=== PATIENT | male | born 2000 | race Two or more races ===

== ENCOUNTER 2024-07-25 19:37 | Emergency (ER) | payer MEDICAID ==
[~2024-07-25] VITALS: Ht 172.7 cm; Wt 87.5 kg
--- NOTE | 2024-07-25 20:40 | Physician Documentation ---
History of Present Illness ~ Chief Complaint: Shortness of Breath Stated Complaint: COUGHING Time Seen by MD: 20:26 OK to notify your PCP?: Yes Source: patient, RN/MD, lead data architect, RN notes reviewed, old records Mode of Arrival: POV Exam Limitations: no limitations HPI 23-year-old Upper Sor[place]-speaking male presents complaining of three days of sore throat, difficulty breathing, and nasal congestion. He reports his throat feels inflamed and might be closing off due to swelling. He also has a frontal headache that began today. He denies history of asthma. He denies any treatment prior to arrival such as seasonal allergy medications. 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 Medication Reconciliation Allergies: Uncoded Allergies: NKDA (Allergy, Unknown, 07/25/24) Past Medical History Past Medical History: No Pertinent History Past Surgical History: abdominal surgery Smoking Status: Never smoker Alcohol Use: Rarely Drug Use: none Occupation: employed Review of Systems All Other Systems at this time: Reviewed and Negative ROS As stated above in the HPI, otherwise all systems are reviewed and negative. Physical Exam Vital Signs: RN Vital Signs have been reviewed: Yes, Temperature: 98.2, Source: Temporal, Heart Rate: 75, Respiratory Rate: 18, BP: 143/89, Pulse Oximetry: 96, Weight: 87.500 Pulse Oximetry Reflects: adequate oxygenation Physical Exam General: The patient is well developed, well nourished, nontoxic appearing and is in no acute distress. Skin: [place], warm and dry with no rashes. HEENT: Enlarged kissing tonsils, no exudates, posterior oropharyngeal erythema. Rhinorrhea. Mild periorbital swelling bilaterally. Head was normocephalic and atraumatic. Chest: Short shallow breath sounds, poor inspiratory effort. Clear to auscultation bilaterally without wheezes, rales or rhonchi. No accessory muscle use. No dullness to percussion. Heart: Rate regular and rhythmic. S1, S2. No murmurs. Palpation of the chest wall was normal. No rubs or thrills. Abdomen: Soft, nontender and nondistended. Positive bowel sounds. No guarding or rebound. Extremities: No cyanosis, clubbing or edema. The patient moves all extremities. Pulses were equal and symmetric. Neurologic: Motor and sensation grossly intact. Cranial nerves II-XII grossly intact. A & O x4. Psychologic: Normal mood and affect. No agitation. Progress Results/Orders Results/Orders Medications Received in ER Medications (Trade) Dose Ordered Sig/Renetta Route PRN Reason Start Time Stop Time Status Last Admin Dose Admin (Kenalog-40 inj) 40 mg ONCE ONCE IM 07/25/24 20:45 07/25/24 20:51 DC 07/25/24 21:11 40 MG (Xylocaine 2% Viscous 15mL cup) 15 ml ONCE ONCE MM 07/25/24 20:45 07/25/24 20:51 DC 07/25/24 21:07 15 ML (Hydramine oral solution) 25 mg ONCE ONCE PO 07/25/24 20:45 07/25/24 20:52 DC 07/25/24 21:18 25 MG (Tessalon Perles capsule) 200 mg ONCE ONCE PO 07/25/24 20:45 07/25/24 20:51 DC 07/25/24 21:10 200 MG (Benadryl capsule) 25 mg ONCE ONCE PO 07/25/24 20:55 07/25/24 20:56 DC 07/25/24 21:09 25 MG (ipratrop/ albuterol 0.5-3(2.5) MG/3ml nebule) 3 ml ONCE ONCE NEB 07/25/24 20:55 07/25/24 20:56 DC 07/25/24 20:58 3 ML (Tylenol tablet) 650 mg ONCE ONCE PO 07/25/24 21:00 07/25/24 21:01 DC 07/25/24 21:09 650 MG (Naprosyn tablet) 500 mg ONCE ONCE PO 07/25/24 21:00 07/25/24 21:01 DC 07/25/24 21:10 500 MG Vital Signs 07/25/24 07/25/24 07/25/24 07/25/24 19:39 20:14 20:28 20:58 Temp 98.2 Pulse 83 75 69 Resp 24 16 18 15 B/P (MAP) 154/75 143/89 (107) Pulse Ox 98 96 95 O2 Delivery Room Air* O2 Flow Rate 0 FiO2 21 07/25/24 07/25/24 21:05 22:27 Temp 98.0 Pulse 77 74 Resp 16 16 B/P (MAP) 108/66 (80) Pulse Ox 97 98 O2 Delivery Room Air* O2 Flow Rate 0 0 FiO2 21 21 Laboratory Tests Test 07/25/24 21:35 SARS-CoV-2 Antigen (Rapid) Negative Medical Decision Making Additional info obtained from: old records Differential Dx:Considerations: Include: sinusitis, upper resp. infection, other Departure Time of Disposition: 23:34 Disposition: 01 HOME / SELF CARE / HOMELESS Impression: Primary Impression: URI (upper respiratory infection) Qualified Codes: J06.9 - Acute upper respiratory infection, unspecified Additional Impressions: Seasonal allergies Pharyngitis Qualified Codes: J02.9 - Acute pharyngitis, unspecified Condition: Stable Discharge Instructions: Pharyngitis, Dlzz-[id number]-Ccop, Upper Respiratory Infection, Adult, [id number] Additional Instructions: Take over the counter benadryl (diphenhydramine), Claratin (loratadine), and Zyrtec (Cetirizine). May also use Flucasone nasal spray. Take acetaminophen and Motrin for headaches. Consider wearing a mask while working. Return to the ER for worsening shortness of breath, fever, chest pain, or other concerns. [place] benadryl (diphenhydramine), Claratin (loratadine), and Zyrtec (Cetirizine) sin receta. [place] puede usar Flucasone en aerosol nasal. [place] acetaminofn y Motrin para el dolor de sahra. Considere usar mascarilla mientras trabaja. Regrese a urgencias si la dificultad para respirar, la fiebre, el dolor de pecho u otras inquietudes empeoran. Education Educated: Patient Educated regarding: diagnosis, treatment, need for follow up Signature Scribe Signature: Scribed for Clinton Grant MD by Jered Yu . 07/25/24 20:55 Attestation: The note accurately reflects work and decisions made by me.Clinton Grant MD 07/25/24 20:39 CLINTON GRANT MD July 25, 2024 20:40 JERED CABA July 25, 2024 21:00
[2024-07-25 20:58] VITALS: PULSE 69; RESP 15; O2SAT 95
[2024-07-25] MEDS: ipratropium/albuterol 3ml nebule NEB ONE (20:58)
[2024-07-25 21:05] VITALS: PULSE 77; RESP 16; O2SAT 97
[2024-07-25] MEDS: LIDOcaine 2% Viscous 15ml cup MM ONE (21:07)
[2024-07-25] MEDS: diphenhydrAMINE 25mg capsule PO ONE (21:09)
[2024-07-25] MEDS: acetaminophen 325mg tablet PO ONE (21:09)
[2024-07-25] MEDS: benzonatate 100mg capsule PO ONE (21:10)
[2024-07-25] MEDS: naproxen 500mg tablet PO ONE (21:10)
[2024-07-25] MEDS: triamcinolone acetonide 40mg/ml inj IM ONE (21:11)
[2024-07-25] MEDS: diphenhydrAMINE 25 MG/10 ML UD oral solution PO ONE (21:18)
[2024-07-25 23:40] VITALS: BP 100/47; PULSE 70; RESP 18; TEMP 98.2; O2SAT 98
== END 2024-07-25 23:44 | disposition home or self-care (01) ==
LOC: ER 19:39
DX: J06.9 Acute upper respiratory infection, unspecified (principal); Z20.822 Contact with and (suspected) exposure to COVID-19
CPT/HCPCS: 36415; 87811; 94640; 96372; 99284; J3301; Q0163; 94760

== ENCOUNTER 2024-09-29 20:14 | Emergency (ER) | payer MEDICAID ==
[~2024-09-29] VITALS: Ht 182.9 cm; Wt 90.2 kg
[2024-09-29 20:16] VITALS: O2SAT 98
--- NOTE | 2024-09-29 20:27 | ELECTROCARDIOGRAPH REPORT ---
[facility] Test Date: 2024-09-29 Test Time: 20:26:04 Pat Name: JOSESITO GROSS Department: [facility]- Patient ID: [facility]-[id number] Room: Gender: M Medical Receptionist Assistant: : 2000 Requested By: TOMMY SAMAYOA Order Number: [id number] Reading MD: Measurements Intervals [place] Rate: 70 P: -13 WI: 178 QRS: 36 QRSD: 87 T: 35 QT: 340 QTc: 367 Interpretive Statements Sinus rhythm ST elev, probable normal early repol pattern Please click the below link to view image of tracing.
[2024-09-29 21:05] LABS: MEAN PLATELET VOLUME 8.1 FL (7.4-10.4); RED CELL DISTRIBUTION WIDTH 15.7 % (11.5-14.5)
--- NOTE | 2024-09-29 21:08 | RADIOLOGY REPORT ---
CHEST RADIOGRAPH Indication: CP Technique: Single frontal view of the chest was obtained COMPARISON: None FINDINGS: Lines and Tubes: None Lungs: Clear Pleura: No effusion. No pneumothorax. Cardiomediastinal contours: Unremarkable Bones: Unremarkable IMPRESSION: 1. No acute disease.
[2024-09-29 21:19] VITALS: BP 131/72; PULSE 68; TEMP 98.6
[2024-09-29 21:28] LABS: CREATININE 0.87 MG/DL (0.60-1.10); TOTAL CARBON DIOXIDE 27.6 MMOL/L (24-32); eCRCL 147 ML/MIN; eGFR > 90 ML/MIN
[2024-09-29 21:29] LABS: PRO BRAIN NATRIURETIC PEPTIDE < 30 PG/ML (0-125)
[2024-09-29 21:43] VITALS: RESP 18
--- NOTE | 2024-09-29 22:06 | Physician Documentation ---
History of Present Illness ~ Chief Complaint: Difficulty Breathing Stated Complaint: SORE THROAT Time Seen by MD: 22:04 Mode of Arrival: POV HPI Patient presents to the emergency room with intermittent shortness of breath. He states he wakes up in the middle of the night feeling short of breath. States he feels like he just can not get enough air her breathe deep enough. Hi story of anxiety. No fevers. Medication Reconciliation Allergies: Uncoded Allergies: NKDA (Allergy, Unknown, 07/25/24) Past Medical History Past Medical History: No Pertinent History Past Surgical History: abdominal surgery Alcohol Use: Rarely Drug Use: none Occupation: employed Review of Systems ROS All review of systems negative except as per HPI Physical Exam Vital Signs: Temperature: 98.6, Heart Rate: 68, Respiratory Rate: 18, BP: 131/72, Pulse Oximetry: 98, Weight: 90.200 Oxygen Flow Rate: 0 Physical Exam General: Patient is awake, alert, oriented x4 in no acute distress and well appearing.~ Head: Normocephalic and atraumatic. Eyes: Conjunctival normal. EOMI. PERRL. ENT: Mucous membranes moist. Neck: Supple, trachea is midline. Chest: Clear to auscultation bilaterally without rales, rhonchi, or wheezes. There is no accessory muscle use or retractions. Cardiac: RRR without murmurs, gallops, or rubs. Abd: Soft, nondistended, nontender, with normoactive bowel sounds. No guarding, rebound, or rigidity. Extremities: Normal strength. Normal range of motion. No deformities or edema. No calf tenderness to palpation Progress Results/Orders Results/Orders Orders - LUIS FERNANDO ORDONEZ MD Chest,Single View (09/29/24 20:58) Monitor (09/29/24 20:25) Saline Lock (09/29/24 20:25) Oxygen (09/29/24 20:25) Hs Troponin I W Calculations (09/29/24 22:25) Hs Troponin I W Calculations (09/29/24 23:25) Completed Orders - LUIS FERNANDO ORDONEZ MD Chest,Single View (09/29/24 20:58) Cbc/Diff (09/29/24 20:25) BMP (09/29/24 20:25) PBNP (09/29/24 20:25) Electrocardiogram (09/29/24 20:25) Hs Troponin I W Calculations (09/29/24 20:25) Vital Signs 09/29/24 09/29/24 09/29/24 20:16 21:19 21:43 Temp 98.6 98.6 Pulse 73 68 Resp 16 18 18 B/P (MAP) 142/65 131/72 (91) Pulse Ox 98 O2 Flow Rate 0 0 Laboratory Tests Test 09/29/24 20:47 White Blood Count 10.0 Red Blood Count 4.94 Hemoglobin 13.3 L Hematocrit 39.0 L Mean Corpuscular Volume 78.9 Mean Corpuscular Hemoglobin 26.9 L Mean Corpuscular Hemoglobin Concent 34.1 Red Cell Distribution Width 15.7 H Platelet Count 388 Mean Platelet Volume 8.1 Neutrophils (%) (Auto) 61.8 Lymphocytes (%) (Auto) 27.9 Monocytes (%) (Auto) 8.7 Eosinophils (%) (Auto) 1.0 Basophils (%) (Auto) 0.6 Neutrophils # (Auto) 6.2 Lymphocytes # (Auto) 2.8 Monocytes # (Auto) 0.9 Eosinophils # (Auto) 0.1 Basophils # (Auto) 0.1 CBC Comment Sodium Level 139 Potassium Level 3.7 Chloride Level 104 Carbon Dioxide Level 27.6 Anion Gap 7 L Blood Urea Nitrogen 23 H Creatinine 0.87 Estimated GFR/1.73 m2 > 90 BUN/Creatinine Ratio 26.4 H Glucose Level 100 Calcium Level 8.3 L Troponin I High Sensitivity 4 Pro-B-Type Natriuretic Peptide < 30 Albumin 4.0 Chemistry Comments Medical Decision Making Findings Patient presents to the emergency room with shortness of breath as per HPI differentials include but are not limited to CHF, anxiety, pneumonia, viral syndrome, sleep apnea. Workup today is reassuring and patient is well- appearing. Discussed the need to follow up with his primary care. He had not believe he is suffering from acute emergency. Symptoms are intermittent and I do not feel he requires investigation into possible pulmonary embolism. Strongly suspect anxiety. Departure Disposition: HOME / SELF CARE / HOMELESS Impression: Primary Impression: Dyspnea Condition: Stable Discharge Instructions: Shortness of Breath, Adult, [id number] Referrals: NO PRIMARY CARE PROVIDER (PCP) Signature Scribe Signature: No scribe Attestation: The note accurately reflects work and decisions made by me.Luis Fernando Ordonez MD 09/29/24 22:34 LUIS FERNANDO ORDONEZ MD Sep 29, 2024 22:06
== END 2024-09-29 22:58 | disposition home or self-care (01) ==
LOC: ER 20:14
DX: R06.00 Dyspnea, unspecified (principal)
CPT/HCPCS: 36415; 71045; 80048; 83880; 84484; 85025; 93005; 99285

== ENCOUNTER 2024-12-26 15:36 | Emergency (ER) | payer MEDICAID ==
[~2024-12-26] VITALS: Ht 172.7 cm; Wt 86.4 kg
[2024-12-26 15:52] VITALS: BP 136/56; PULSE 89; RESP 20; TEMP 98.6; O2SAT 97
[2024-12-26 16:41] LABS: STREP A SCREEN NEGATIVE (Neg)
--- NOTE | 2024-12-26 17:06 | Physician Documentation ---
History of Present Illness ~ Chief Complaint: Flu Symptoms Stated Complaint: COUGH Time Seen by MD: 16:10 Source: patient Mode of Arrival: POV Exam Limitations: no limitations HPI 24-year-old male who is here due to cough that started a few days ago. He is here with another family member who has similar symptoms. Patient denies fever, chills, chest pain, shortness of breath. He does have a sore throat as well. No pre arrival treatment. Medication Reconciliation Allergies: Uncoded Allergies: NKDA (Allergy, Unknown, 07/25/24) Past Medical History Past Medical History: No Pertinent History Past Surgical History: abdominal surgery Alcohol Use: Rarely Drug Use: none Occupation: employed Review of Systems All Other Systems at this time: Reviewed and Negative Physical Exam Vital Signs: Temperature: 98.6, Source: Temporal, Heart Rate: 89, Respiratory Rate: 20, BP: 136/56, Pulse Oximetry: 97, Weight: 86.360 Physical Exam General Appearance: Alert, WD/WN. NAD. HEENT: NCAT, PERRL, EOMI. Tonsils are enlarged bilaterally, symmetrical, erythematous, no exudate. Uvula midline. Neck: Supple, trachea midline. No cervical lymphadenopathy or tenderness. Cardiovascular: RRR. No m/r/g. Lungs: Coughing with deep respirations but lungs are clear no wheezing rhonchi or rales. Breathing is unlabored. Cough sounds dry. Extremities: Normal inspection. No edema. Skin: Warm/dry, normal color Neurological: Alert and oriented x4, normal gait. Psychiatric: Affect congruent with mood. Progress Results/Orders Results/Orders Orders - JAELYN GRANADOS Covid19 Binax Poc Result Entry (12/26/24 16:08) Cult Throat + R/O Beta Strep (12/26/24 16:41) Completed Orders - JAELYN GRANADOS Strep A Rapid (12/26/24 16:08) Vital Signs 12/26/24 15:52 Temp 98.6 Pulse 89 Resp 20 B/P (MAP) 136/56 Pulse Ox 97 Laboratory Tests Test 12/26/24 16:04 SARS-CoV-2 Antigen (Rapid) Negative Group A Streptococcus Rapid Negative Medical Decision Making Additional Comment Strep and COVID were both negative. Patient's family member was tested for influenza and this was negative and thus I did not test the patient for influenza since he states they both have the same symptoms. Symptoms likely viral in etiology no concern for pneumonia as patient has equal breath sounds throughout and normal vital signs and no shortness of breath. Also symptoms only recently started making pneumonia less likely as well. Departure Time of Disposition: 17:00 Disposition: 01 HOME / SELF CARE / HOMELESS Impression: Primary Impression: Viral infection Condition: Stable Discharge Instructions: Viral Illness Additional Instructions: RETURN TO ER IF YOU DO NOT FEEL BETTER OVER THE NEXT SEVERAL DAYS YOUR COVID AND STREP TEST WHERE NEGATIVE Referrals: NO PRIMARY CARE PROVIDER (PCP) Education Educated: Patient Educated regarding: diagnosis, treatment, need for follow up Signature Scribe Signature: x Attestation: JAELYN Multani Dec 26, 2024 17:06
[2024-12-29] MEDS ORDERED: PENI500T2 PO (07:17)
== END 2024-12-26 17:09 | disposition home or self-care (01) ==
LOC: ER 15:37
DX: B34.9 Viral infection, unspecified (principal); Z20.822 Contact with and (suspected) exposure to COVID-19
CPT/HCPCS: 36415; 87081; 87811; 87880; 99283